=== PATIENT | female | born 1990 | race Caucasian/White ===

== ENCOUNTER 2020-03-26 12:05 | Day surgery (SDC) | payer OTHER ==
[~2020-03-26] VITALS: Ht 165.1 cm; Wt 69.9 kg
[~2020-03-26 12:05] MED LIST: BUPIVACAINE/PF 0.25% ONE; MULT-516 PO; NORE-211 PO
[2020-03-26] MEDS ORDERED: CHLORHEXIDINE 15 ML UDC MM ONE (12:30)
[2020-03-26] MEDS ORDERED: LACTATED RINGERS 1,000 ML IV SCH (12:30)
[2020-03-26] MEDS ORDERED: CHLORHEXIDINE 15 ML UDC ONE (12:32)
[2020-03-26 12:59] LABS: HCG UR SG 1.025 (1.003-1.030)
[2020-03-26] MEDS ORDERED: MIDAZOLAM 1 MG/ML, 2ML ONE (15:49)
[2020-03-26] MEDS ORDERED: FENTANYL PF 100 MCG/2ML ONE ×2 (15:49→16:20)
[2020-03-26] MEDS ORDERED: PROMETHAZINE 25 MG SUPP PR PRN (16:00)
[2020-03-26] MEDS ORDERED: HYDROmorphone 1 MG/ML, 1ML INJ IVPush PRN (16:00)
[2020-03-26] MEDS ORDERED: ONDANSETRON 2MG/ML, 2ML IVPush PRN (16:00)
[2020-03-26] MEDS ORDERED: ACETAMINOPHEN 325 MG TABLET PO PRN (16:00)
[2020-03-26] MEDS ORDERED: FENTANYL PF 100 MCG/2ML IV PRN (16:00)
[2020-03-26] MEDS ORDERED: METHOCARBAMOL 1,000 MG in DEXTROSE 5% 100 ML IV PRN (16:00)
[2020-03-26] MEDS ORDERED: OXYcodone 5 MG/5 ML ORAL.SOL UDC PO PRN (16:00)
[2020-03-26] MEDS ORDERED: LORazepam 2 MG/ML, 1ML IVPush PRN (16:00)
[2020-03-26] MEDS ORDERED: PROMETHAZINE 25 MG/ML, 1ML IVPush PRN (16:00)
[2020-03-26] MEDS ORDERED: DEXAMETHASONE 4 MG/ML, 1ML ONE (16:25)
[2020-03-26] MEDS ORDERED: CEFAZOLIN 1,000 MG ONE (16:25)
[2020-03-26] MEDS ORDERED: NEOSTIGMINE 1 MG/ML, 10ML ONE (16:25)
[2020-03-26] MEDS ORDERED: ONDANSETRON 2MG/ML, 2ML ONE (16:25)
[2020-03-26] MEDS ORDERED: PROPOFOL 10 MG/ML, 20ML ONE (16:25)
[2020-03-26] MEDS ORDERED: GLYCOPYRROLATE 0.2MG/1ML, 5ML ONE (16:25)
[2020-03-26] MEDS ORDERED: SUCCINYLCHOLINE 20 MG/ML, 10ML ONE (16:25)
[2020-03-26] MEDS ORDERED: ROCURONIUM 10MG/ML,5ML ONE (16:25)
[2020-03-26] MEDS ORDERED: SUGAMMADEX 200 MG/2 ML IVPush ONE (16:28)
[2020-03-26] MEDS ORDERED: ACETAMINOPHEN 650 MG/20.3 ML UDC ONE (16:55)
== END 2020-03-26 18:40 | disposition home or self-care (01) ==
LOC: OUT 12:05
PROVIDERS: ATTEND Obstetrics & Gynecology Female Pelvic Medicine and Reconstructive Surgery
DX: Z30.2 Encounter for sterilization (principal); K66.0 Peritoneal adhesions (postprocedural) (postinfection); Z79.899 Other long term (current) drug therapy; Z88.0 Allergy status to penicillin; Z88.1 Allergy status to other antibiotic agents
CPT/HCPCS: 58670; 81025; 87635; 88302; J0690; J1100; J2250; J2405; J2704; J2710; J3010; J7120; J0330